=== PATIENT | male | born 1970 | race Caucasian/White ===

== ENCOUNTER 2016-10-08 15:28 | Emergency (ER) | payer OTHER ==
[2016-10-08 15:34] VITALS: TEMP 98.6
--- NOTE | 2016-10-08 15:35 | EDPHY ---
H & P Time Seen by Provider: 10/08/16 15:35 HPI/ROS: CHIEF COMPLAINT: Rapid heart rate HISTORY OF PRESENT ILLNESS: 45-year-old man was out partying last night with his girlfriend up till 2:00 a.m. drinking more alcohol than usual. Today he was at [facility] about 3:00 p.m. noticed sudden onset of very rapid heart rate, felt dizzy and lightheaded and his girlfriend noted that he looked burden and ashen. He did not actually pass out. Not associated with chest pain or shortness of breath. No recent travel or immobilization. The noticed a very rapid heart rate greater than 140 or 150 beats per minute. Now he feels better and feels that his symptoms have completely resolved. REVIEW OF SYSTEMS: Eye: no change in vision ENT: no sore throat Cardiac: no chest pain or syncope Pulmonary: no cough or SOB Abdomen: no vomiting, diarrhea, abdominal pain Musculoskeletal: no back pain Skin: no rash Neuro: no headache, no focal neurologic problems, no difficulty with speech. Constitutional: no fever : no urinary symptoms A comprehensive 10 point review of systems is otherwise negative aside from elements mentioned in the history of present illness. PAST MEDICAL HISTORY: Pneumothorax on the right side spontaneous at 17 years old Social history: Negative for tobacco or cocaine. Negative family history for premature coronary disease or venous thromboembolism. General Appearance: Alert and conversant, cooperative. Eyes: No scleral icterus. ENT, Mouth: Normal mucous membranes. Respiratory: Normal respiratory effort, breath sounds equal, lungs are clear to auscultation. Cardiovascular: Regular rate and rhythm. Tachycardia. Gastrointestinal: Abdomen is soft and non tender. Neurological: Alert and oriented x3. Normally conversant. Face symmetric, normal movement and sensation in all extremities. Skin: Warm and dry, no rashes. Musculoskeletal: No peripheral edema and no joint swelling. No calf tenderness. Psychiatric: Not agitated. Emergency Department course/MDM: Low pretest clinical suspicion for pulmonary embolism. More likely SVT or atrial fibrillation which broke spontaneously with persistent sinus tachycardia. 1708: Heart rate 105, more IV fluids, stable for discharge. Unlikely to be acute coronary syndrome or malignant dysrhythmia or PE. Encouraged to follow up with his primary care physician in [place] this week. Smoking Status: Never smoked Constitutional: Initial Vital Signs Temperature (C) 37 C 10/08/16 15:31 Heart Rate 127 H 10/08/16 15:31 Respiratory Rate 18 10/08/16 15:31 Blood Pressure 169/100 H 10/08/16 15:31 O2 Sat (%) 97 10/08/16 15:31 O2 Delivery Mode Room Air Allergies/Adverse Reactions: amoxicillin Allergy (Verified 10/08/16 15:31) Home Medications: Medication Instructions Recorded NK [No Known Home Meds] 10/08/16 Medical Decision Making - Diagnostics EKG Interpretation: 12-lead EKG interpreted by me; official reading is in trace master. My interpretation is sinus tachycardia rate 120 with left atrial abnormality. Imaging Results: Imaging Impressions Chest X-Ray 10/08/16 15:50 Impression: No acute pulmonary disease. Differential Diagnosis: Differential diagnosis considered for narrow complex tachycardia including but not limited to various causes of sinus tachycardia, SVT, atrial flutter and atrial fibrillation. - Data Points Laboratory Results: Laboratory Results 10/08/16 15:45 10/08/16 15:45 10/08/16 10/08/16 10/08/16 15:45 15:45 15:45 WBC 4.85 10^3/uL 10^3/uL (3.80-9.50) RBC 5.54 10^6/uL 10^6/uL (4.40-6.38) Hgb 17.8 g/dL H g/dL (13.7-17.5) Hct 50.2 % % (40.0-51.0) MCV 90.6 fL fL (81.5-99.8) MCH 32.1 pg pg (27.9-34.1) MCHC 35.5 g/dL g/dL (32.4-36.7) RDW 12.1 % % (11.5-15.2) Plt Count 218 10^3/uL 10^3/uL (150-400) MPV 10.4 fL fL (8.7-11.7) Neut % (Auto) 49.4 % % (39.3-74.2) Lymph % (Auto) 35.1 % % (15.0-45.0) [place] % (Auto) 11.3 % % (4.5-13.0) Eos % (Auto) 2.1 % % (0.6-7.6) Baso % (Auto) 1.9 % H % (0.3-1.7) Nucleat RBC Rel Count 0.0 % % (0.0-0.2) Absolute Neuts (auto) 2.40 10^3/uL 10^3/uL (1.70-6.50) Absolute Lymphs (auto) 1.70 10^3/uL 10^3/uL (1.00-3.00) Absolute Monos (auto) 0.55 10^3/uL 10^3/uL (0.30-0.80) Absolute Eos (auto) 0.10 10^3/uL 10^3/uL (0.03-0.40) Absolute Basos (auto) 0.09 10^3/uL 10^3/uL (0.02-0.10) Absolute Nucleated RBC 0.00 10^3/uL 10^3/uL (0-0.01) Immature Gran % 0.2 % % (0.0-1.1) Immature Gran # 0.01 10^3/uL 10^3/uL (0.00-0.10) D-Dimer < 0.27 ug/mLFEU ug/mLFEU (0.00-0.50) Sodium 143 mEq/L mEq/L (134-144) Potassium 3.7 mEq/L mEq/L (3.5-5.2) Chloride 106 mEq/L mEq/L (97-110) Carbon Dioxide 23 mEq/l mEq/l (22-31) Anion Gap 14 mEq/L mEq/L (8-16) BUN 12 mg/dL mg/dL (7-23) Creatinine 1.1 mg/dL mg/dL (0.7-1.3) Estimated GFR > 60 Glucose 110 mg/dL H mg/dL (70-100) Calcium 10.0 mg/dL mg/dL (8.5-10.4) Troponin I 0.027 ng/mL ng/mL (0-0.034) Medications Given: Discontinued Medications Sodium Chloride (Ns) 1,000 mls @ 0 mls/hr IV ONCE ONE PRN Reason: Wide Open Stop: 10/08/16 15:51 Last Admin: 10/08/16 15:51 Dose: 1,000 mls Departure - Departure Disposition: Home, Routine, Self-Care Clinical Impression: Palpitations Condition: Good Instructions: Palpitations (ED) Referrals: [facility] [Other] - As per Instructions
--- NOTE | 2016-10-08 15:46 | CPEKG ---
Heart Rate: 119 RR Interval: 504 P-R Interval: 152 QRSD Interval: 84 QT Interval: 304 QTC Interval: 428 P [place]: 57 QRS [place]: 54 T Wave [place]: 67 EKG Severity - BORDERLINE ECG - EKG Impression: SINUS TACHYCARDIA EKG Impression: PROBABLE LEFT ATRIAL ABNORMALITY Electronically Signed By: Anthony Muniz 08-Oct-2016 15:52:46
[2016-10-08] MEDS ORDERED: NS 1,000 ML IV ONE ×2 (15:50→17:08)
[2016-10-08 15:55] LABS: % IMMATURE GRANULYOCYTES 0.2 % (0.0-1.1); ABSOLUTE IMMATURE GRANULOCYTES 0.01 10^3/uL (0.00-0.10); ADD DIFF? NO; ADD MORPH? NO; ADD SCAN? NO; ATYPICAL LYMPHOCYTE FLAG 0 (0-99); FRAGMENT RBC FLAG 0 (0-99); HEMATOCRIT 50.2 % (40.0-51.0); HEMOGLOBIN 17.8 g/dL (13.7-17.5); LEFT SHIFT FLG 0 (0-99); LIPEMIA HEMOLYSIS FLAG 90 (0-99); MEAN CELL HEMOGLOBIN 32.1 pg (27.9-34.1); MEAN CELL HEMOGLOBIN CONCENTR. 35.5 g/dL (32.4-36.7); MEAN CELL VOLUME 90.6 fL (81.5-99.8); MEAN PLATELET VOLUME 10.4 fL (8.7-11.7); PLATELET CLUMPS FLAG 0 (0-99); PLATELET COUNT 218 10^3/uL (150-400); RED BLOOD CELL COUNT 5.54 10^6/uL (4.40-6.38); RED CELL DISTRIBUTION WIDTH 12.1 % (11.5-15.2)
[2016-10-08 16:08] LABS: ANION GAP 14 mEq/L (8-16); CARBON DIOXIDE 23 mEq/l (22-31); CHLORIDE 106 mEq/L (97-110); CREATININE 1.1 mg/dL (0.7-1.3); GLOMERULAR FILTRATION RATE > 60; GLUCOSE 110 mg/dL (70-100); POTASSIUM 3.7 mEq/L (3.5-5.2); SODIUM 143 mEq/L (134-144)
[2016-10-08 16:20] LABS: TROPONIN I 0.027 ng/mL (0-0.034)
[2016-10-08 17:59] VITALS: BP 161/92; PULSE 102; RESP 16; O2SAT 93
== END 2016-10-08 17:57 | disposition home or self-care (01) ==
DX: R00.2 Palpitations (principal)